=== PATIENT | female | born 2000 | race Caucasian/White ===

== ENCOUNTER 2021-09-17 18:14 | Emergency (ER) | payer OTHER, SELFPAY ==
[2021-09-17 18:27] VITALS: BP 132/78; PULSE 105; RESP 18; TEMP 37; O2SAT 98
--- NOTE | 2021-09-17 20:13 | ED.URI ---
HPI - URI/Sore Throat General Chief Complaint: Upper Respiratory Infection Stated Complaint: Fever,Chills Time Seen by Provider: 09/17/21 20:14 Source: patient, RN notes reviewed and old records reviewed Mode of arrival: ambulatory Limitations: no limitations History of Present Illness HPI Narrative: 21-year-old female who presents to [facility] with complaints of fever,chills with coughing, some nasal drainage and body aches.Patient states her chest hurts with coughing she has had fevers up to 101 F has been taking Tylenol. Patient has 2 days history of symptoms states she has had Covid vaccinations but no booster has not had a flu vaccine. Patient has red rash around her eyes and on face which she states she thinks it is her eczema has been applying emollient cream. Patient states that there has been people at work with COVID recently. MD elicited complaint: fever, cough, rhinorrhea, nasal congestion and other (Chills body aches chest hurts with cough) Related Data Allergies Allergy/AdvReac Type Severity Reaction Status Date / Time No Known Allergies Allergy Verified 09/17/21 20:41 Review of Systems Review of Systems: CONSTITUTIONAL: Positive for fever, chills, or sweats. EYES: Denies visual changes, redness, or discharge. ENT:Positive for rhinorrhea, congestion, sore throat, or otalgia. CARDIOVASCULAR: Denies chest pain, palpitations, or edema.states chest hurts with cough RESPIRATORY:Positive for cough denies dyspnea. GASTROINTESTINAL: Denies abdominal pain, nausea, vomiting, or diarrhea. GENITOURINARY: Denies dysuria or hematuria. SKIN: Denies rash or itching. MUSCULOSKELETAL: Denies back pain, joint pain ,positive for body aches NEUROLOGIC: Positive for headache, numbness, or weakness. PSYCHIATRIC: Denies anxiety or depression.anxious and tearful All systems reviewed & are unremarkable except as noted in HPI and below PMFSH Past Medical History Medical History (Updated 09/18/21 @ 11:50 by Luci Mancini NP) Eczema Social History Social History (Updated 09/18/21 @ 12:07 by Luci Mancini NP) Smoking status: Never smoker Alcohol intake: current Alcohol use details: rare social Substance use: never Living arrangements: with family Gender identity (if verbalized by the patient): Female Comments At time of signature, agree with nursing past medical, surgical, social and family history. There is no relevant family history pertinent to the presenting complaint Exam Narrative: GENERA Ill-appearing, well-nourished, and in no acute distress. HEAD: Normocephalic, atraumatic. EYES: PERRLA and EOMI. ENT: Nares red with clear rhinorrhea no epistaxis. Mucous membranes moist. TMs normal with good light reflex, throat red no exudates or lesions no acute tonsil swelling postnasal drainage NECK: Supple. No lymphadenopathy CHEST: Clear to auscultation. No respiratory distress. Acute cough SaO2 98% on room air HEART: Regular rate and rhythm. No murmur heard. Normal peripheral pulses. ABDOMEN: Soft, nontender, nondistended, normal active bowel sounds. EXTREMITIES: Normal range of motion. No edema. SKIN: Warm, dry, red irritated rash noted to face around eyes patient has history of eczema NEURO: No focal deficits. Alert and oriented x3. Course Course Level of Care: Express Care Visit Vital Signs Vital signs: Vital Signs Temperature 37.0 C 09/17/21 18:27 Pulse Rate 105 H 09/17/21 18:27 Respiratory Rate 18 09/17/21 18:27 Blood Pressure 132/78 09/17/21 18:27 Pulse Oximetry 98 09/17/21 18:27 Temperature 37.0 C 09/17/21 18:27 Pulse Rate 105 H 09/17/21 18:27 Respiratory Rate 18 09/17/21 18:27 Blood Pressure 132/78 09/17/21 18:27 Pulse Oximetry 98 09/17/21 18:27 MDM - URI/Sore Throat Differential Diagnosis Differential diagnosis: Likely upper respiratory infection, sinusitis, viral infection, influenza and other (Covid screen) Medical Records Attestation: I reviewed
== END 2021-09-17 20:45 | disposition home or self-care (01) ==
PROVIDERS: Emergency Provider Registered Nurse
DX: U07.1 COVID-19 (principal)
CPT/HCPCS: 87426; 87804; 99213; C9803; G0463

== ENCOUNTER 2021-11-24 11:01 | Emergency (ER) | payer OTHER, SELFPAY ==
--- NOTE | ~2021-11-24 | CT_ITS ---
EXAMINATION: CT abdomen pelvis w con DATE: 11/24/2021 13:57 INDICATION: Right lower quadrant abdominal pain. Nausea and fever. TECHNIQUE: Computed tomography (CT) of the abdomen and pelvis was performed with 100 mL Omnipaque 350 intravenous contrast. Automated exposure control and iterative reconstruction technique were employe d. The dose-length product was 840.90 mGy-cm. COMPARISON: None. FINDINGS: The visualized portions of the lung bases are clear without pneumonia or pleural effusion. The heart size is normal. No pericardial effusion. The liver, spleen, gallbladder, pancreas, adrenal glands, and kidneys are normal. There is an intrauterine device in expected position. There are no di lated loops of bowel. The appendix is normal. There are no pathologically enlarged lymph nodes. There is no free intraperitoneal fluid. There is subcutaneous gas in right flank. The bones are unremarkab le. IMPRESSION: 1. Subcutaneous gas in right flank, which may be an injection site or secondary to a laceration. Reviewed, dictated and finalized at location A.
[2021-11-24 11:04] VITALS: BP 122/79; PULSE 80; RESP 14; TEMP 37.1; O2SAT 97
--- NOTE | 2021-11-24 11:28 | ED.NAVMDI ---
HPI - Nausea/Vomiting/Diarrhea General Chief complaint: Nausea/Vomiting/Diarrhea Stated complaint: Vomiting Time Seen by Provider: 11/24/21 11:28 Source: patient Mode of arrival: ambulatory Limitations: no limitations History of Present Illness HPI Narrative: Patient is a 21-year-old female presenting to the emergency department for evaluation of nausea, vomiting, diarrhea. Patient reports 72 hours of nausea, vomiting, watery diarrhea with mucus present. Patient reports subjective fever, chills on , resolved Thursday and Thursday. Patient states she has been unable to tolerate any oral intake. She reports generalized abdominal cramping with is mild in nature. No specific flank pain. She denies dysuria or hematuria. No hesitancy. No pelvic pain or vaginal discharge. Patient does not believe she is . Patient states that her significant other had similar symptoms earlier in the week, however his vomiting improved. No other recent sick contacts. Patient denies rhinorrhea, cough, congestion. No chest pain. Related Data Allergies Allergy/AdvReac Type Severity Reaction Status Date / Time No Known Allergies Allergy Verified 09/17/21 20:41 Review of Systems Review of Systems: CONSTITUTIONAL: Reports fever and chills EYES: Denies visual changes, redness, or discharge. ENT: Denies rhinorrhea, congestion, sore throat, or otalgia. CARDIOVASCULAR: Denies chest pain, palpitations, or edema. RESPIRATORY: Denies cough or dyspnea. GASTROINTESTINAL: Reports abdominal pain, nausea, vomiting, diarrhea GENITOURINARY: Denies dysuria or hematuria. SKIN: Denies rash or itching. MUSCULOSKELETAL: Denies back pain, joint pain, or myalgia. NEUROLOGIC: Denies headache, numbness, or weakness. [facility] Past Medical History Medical History Eczema Social History Social History Smoking status: Never smoker Alcohol intake: current Alcohol use details: rare social Substance use: never Gender identity (if verbalized by the patient): Female Exam Narrative: GENERAL: Awake, alert, conversant HEAD: Normocephalic, atraumatic. EYES: PERRLA and EOMI. ENT: Nares clear, no rhinorrhea or epistaxis. Mucous membranes moist. NECK: Supple. CHEST: No respiratory distress, breathing even and non labored HEART: Regular rate, sinus rhythm ABDOMEN:Non distended, mild tenderness in all 4 quadrants throughout, no focal tenderness, no rebound, no rigidity, no guarding EXTREMITIES: Normal range of motion. No edema. SKIN: Warm, dry, no rash. NEURO:No focal deficits. Alert and oriented x3 Course Vital Signs Vital signs: Vital Signs Temperature 37.1 C 11/24/21 11:04 Pulse Rate 80 11/24/21 11:04 Respiratory Rate 14 11/24/21 11:04 Blood Pressure 122/79 11/24/21 11:04 Pulse Oximetry 97 11/24/21 11:04 Temperature 37.1 C 11/24/21 11:04 Pulse Rate 68 11/24/21 13:32 Respiratory Rate 18 11/24/21 13:32 Blood Pressure 125/78 11/24/21 13:32 Pulse Oximetry 99 11/24/21 13:32 MDM - Nausea/Vomiting/Diarrhea MDM Narrative Medical decision making narrative: Patient presented for evaluation of nausea, vomiting, abdominal pain, diarrhea. At the time of assessment, ABCs are intact and vital signs are stable. She is afebrile. Lab results notable for mild leukopenia, mild transaminitis, likely secondary to dehydration. No acute injury or electrolyte abnormality. CT scan is reassuring. I did obtain this because initially the patient did have focal right lower quadrant pain at the time of reassessment. Patient's vomiting resolved after IV fluids, antiemetic, pain medication. She is able to tolerate oral intake. Patient has some subcutaneous gas in the flanks secondary to a Bentyl injection which was given intramuscularly. As patient feels well, we did discuss the results of her urinalysis. She is not currently
[2021-11-24 11:51] LABS: Basophils Percent Auto 0.3 % (0.2-1.2); Eosinophils Absolute Auto 0.1 K/mm3 (0-0.3); Eosinophils Percent Auto 2.1 % (0-4.4); Hematocrit 45.3 % (37.0-47.0); Hemoglobin 15.2 g/dL (12.0-15.0); Immature Granulocyte Absolute 0.01 K/mm3 (0.00-0.031); Immature Granulocyte Percent A 0.3 % (0-0.5); Lymphocytes Absolute Auto 1.31 K/mm3 (0.9-3.2); Lymphocytes Percent Auto 39.2 % (18.3-44.2); Mean Corpuscular HGB Conc 33.6 g/dl (32-36); Mean Corpuscular Hemoglobin 28.7 pg (26-34); Mean Corpuscular Volume 85.6 fl (80-100); Mean Platelet Volume 9.4 fl (7.4-10.4); Monocytes Absolute Auto 0.6 K/mm3 (0.1-0.6); Monocytes Percent Auto 17.4 % (2.6-8.5); Neutrophils Absolute Auto 1.4 K/mm3 (1.3-6.7); Neutrophils Percent Auto 40.7 % (45.5-73.1); Platelet Count Result 253 k/mm3 (150-375); Red Blood Count 5.29 M/mm3 (4.2-5.4); Red Cell Distribution Width 12.1 % (11.5-14.5); White Blood Count 3.3 K/mm3 (4.5-10.0)
[2021-11-24 11:55] LABS: Add Urine Microscopic? YES; Appearance Urine Cloudy (Clear); Bacteria Urine Trace /hpf; Bilirubin Urine Negative (Negative); Blood Urine 1+ (Negative); Color Urine Yellow (Yellow); Glucose Urine UA Negative (Negative); Ketones Urine Negative (Negative); Leukocyte Esterase Ur 1+ LEU/UL (Negative); Nitrate Urine Negative (Negative); Protein Urine Negative (Negative); Specific Grav Ur 1.005 (1.001-1.035); Squamous Epithelial Cell Urine Many /hpf (Few); Urobilinogen Urine Negative mg/dL (<2.0)
[2021-11-24 12:02] LABS: Alanine Aminotransferase 92 U/L (4-35); Albumin Level 4.2 g/dL (3.5-5.1); Alkaline Phosphatase 67 U/L (38-126); Anion Gap 8 mmol/L (8-16); Aspartate Amino Transferase 46 U/L (14-36); Bilirubin,Total 0.4 mg/dL (0.2-1.3); Blood Urea Nitrogen 10 mg/dL (7-17); Calcium 8.5 mg/dL (8.4-10.2); Carbon Dioxide 26 mmol/L (22-30); Chloride 105 mmol/L (98-107); Estimated CRCL calculation 104 ml/min; Estimated Glomerular Filt Rate > 60; Glucose 107 mg/dL (65-110); Lipase 60 U/L (23-300); Potassium 3.7 mmol/L (3.4-5.0); Sodium 139 mmol/L (137-145)
[2021-11-24] MEDS: DICYCLOMINE HCL INJ 20 MG/2 ML VIAL IM (12:09)
[2021-11-24] MEDS: ONDANSETRON INJ 4 MG/2 ML VIAL IV PUSH (12:09)
[2021-11-24] MEDS: SODIUM CHLORIDE 0.9% IV 1,000 ML 999 ML IV CONT (12:10)
[2021-11-24 13:32] VITALS: BP 125/78; PULSE 68; RESP 18; O2SAT 99
[2021-11-24 14:49] VITALS: BP 120/58; PULSE 88; RESP 18; O2SAT 98
== END 2021-11-24 14:49 | disposition home or self-care (01) ==
PROVIDERS: Emergency Provider Emergency Medicine; PCP Nurse Practitioner Family
DX: K52.9 Noninfective gastroenteritis and colitis, unspecified (principal); E86.0 Dehydration; R31.9 Hematuria, unspecified
CPT/HCPCS: 36415; 74177; 80053; 81001; 81025; 83690; 85025; 96361; 96365; 96372; 96375; 99284; J0131; J0500; J2405; J7030; Q9967